=== PATIENT | female | born 1955 | race Caucasian/White ===

== ENCOUNTER 2016-12-26 01:08 | Inpatient (IN) | payer MEDICARE, MEDICAID ==
[~2016-12-26] VITALS: Ht 165.1 cm; Wt 82.0 kg
[2016-12-26 01:40] LABS: HEMATOCRIT 42.5 % (34.6-47.8); HEMOGLOBIN 14.3 g/dL (11.7-16.4); WHITE BLOOD COUNT 8.8 x10^3/uL (3.4-10)
[2016-12-26 01:50] LABS: BLOOD UREA NITROGEN 16 mg/dL (7-18)
[2016-12-26 01:55] LABS: IS PT STATUS REG ER OR PRE ER? YES
[2016-12-26] MEDS ORDERED: SODIUM CHLORIDE 0.9% 1,000 ML IV ONE (02:20)
[2016-12-26] MEDS ORDERED: ONDANSETRON 2MG/ML, 2ML IVPush PRN ×2 (02:30→05:30)
[2016-12-26] MEDS ORDERED: ONDANSETRON 2MG/ML, 2ML ONE (02:42)
[2016-12-26 03:19] VITALS: BP 142/74
[2016-12-26] MEDS ORDERED: SODIUM CHLORIDE 0.9% 1,000 ML IV SCH (05:28)
[2016-12-26] MEDS ORDERED: ACETAMINOPHEN 325 MG TABLET PO PRN (05:30)
[2016-12-26] MEDS ORDERED: morphine SULFATE 10 MG/ML, 1ML IVPush PRN (05:30)
[2016-12-26] MEDS ORDERED: POLYETHYLENE GLYCOL 17 GM PACKET PO PRN (05:30)
[2016-12-26] MEDS ORDERED: DOCUSATE 100 MG CAPSULE PO PRN (05:30)
[2016-12-26] MEDS ORDERED: METHOCARBAMOL 500 MG TABLET PO PRN (06:00)
[2016-12-26 06:49] VITALS: BP 128/78
[2016-12-26] MEDS ORDERED: DIAZ5TAB PO (16:22)
== END 2016-12-26 07:58 | disposition left against medical advice (07) | DRG 313 ==
LOC: ED 01:44 → EDIP 02:20 → 5SO 03:13
PROVIDERS: ADMIT Family Medicine; ATTEND Family Medicine
DX: R07.9 Chest pain, unspecified (principal); R56.9 Unspecified convulsions; R00.1 Bradycardia, unspecified; F12.90 Cannabis use, unspecified, uncomplicated; Z88.6 Allergy status to analgesic agent; Z88.8 Allergy status to other drugs, medicaments and biological substances; Z72.0 Tobacco use
CPT/HCPCS: 36415; 80048; 82040; 84484; 85025; 93005; 99285; J2270; J7030

== ENCOUNTER 2016-12-26 14:56 | Inpatient (IN) | payer MEDICARE, MEDICAID ==
[~2016-12-26] VITALS: Ht 162.6 cm; Wt 79.5 kg
[2016-12-26] MEDS ORDERED: SODIUM CHLORIDE FLUSH 10ML SYR IVF ONE (15:30)
[2016-12-26 15:47] LABS: HEMATOCRIT 42.7 % (34.6-47.8); HEMOGLOBIN 14.8 g/dL (11.7-16.4); WHITE BLOOD COUNT 7.6 x10^3/uL (3.4-10)
[2016-12-26 15:56] LABS: IS PT STATUS REG ER OR PRE ER? YES
[2016-12-26] MEDS ORDERED: DIAZ5TAB PO (16:22)
[2016-12-26] MEDS ORDERED: ACETAMINOPHEN 325 MG TABLET PO PRN (16:30)
[2016-12-26] MEDS ORDERED: ONDANSETRON ODT 4 MG PO PRN (16:30)
[2016-12-26] MEDS ORDERED: DOCUSATE 100 MG CAPSULE PO PRN (16:30)
[2016-12-26] MEDS ORDERED: ONDANSETRON 2MG/ML, 2ML IVPush PRN (16:30)
[2016-12-26] MEDS ORDERED: KETOROLAC 30 MG/1 ML IVPush ONE (17:00)
[2016-12-26] MEDS ORDERED: METHOCARBAMOL 750 MG TABLET PO PRN (17:00)
[2016-12-26 18:11] LABS: DAU SCREEN DISCLAIMER
[2016-12-26 19:19] VITALS: BP 171/88
[2016-12-26 19:45] VITALS: BP 142/90
[2016-12-26] MEDS: SODIUM CHLORIDE 0.9% 1,000 ML IV SCH (20:12)
[2016-12-26] MEDS: NICOTINE 14MG/24 HR PATCH.TD24 TD SCH (20:12)
[2016-12-27 03:58] VITALS: BP 123/78
[2016-12-27 04:50] VITALS: BP 123/78
[2016-12-27] MEDS: SODIUM CHLORIDE 0.9% 1,000 ML IV SCH (04:54)
[2016-12-27 08:20] VITALS: BP 164/91
[2016-12-27] MEDS ORDERED: CEFAZOLIN PMX 1GM/50ML 50 ML ONE (13:34)
[2016-12-27] MEDS ORDERED: LIDOCAINE 2%, 20ML ONE (13:34)
[2016-12-27] MEDS ORDERED: CEFAZOLIN 1,000 MG ONE (13:34)
[2016-12-27] MEDS ORDERED: MIDAZOLAM 1 MG/ML, 5ML ONE (13:34)
[2016-12-27] MEDS ORDERED: FENTANYL PF 100 MCG/2ML ONE (13:34)
[2016-12-27] MEDS ORDERED: DIPHENHYDRAMINE 50 MG/ML, 1ML ONE (14:04)
[2016-12-27 15:26] VITALS: BP 122/87
[2016-12-27 20:35] VITALS: BP 104/74
[2016-12-27] MEDS: NICOTINE 14MG/24 HR PATCH.TD24 TD SCH (21:20)
[2016-12-27] MEDS: SODIUM CHLORIDE FLUSH 10ML SYR IVF SCH (21:20)
[2016-12-27] MEDS: CEFAZOLIN PMX 1GM/50ML 50 ML IVPB SCH (22:23)
[2016-12-28] MEDS: HYDROcodone/APAP 5/325 TABLET PO PRN ×2 (00:58→06:11)
[2016-12-28 01:00] VITALS: BP 119/80
[2016-12-28] MEDS: CEFAZOLIN PMX 1GM/50ML 50 ML IVPB SCH ×2 (06:11→12:42)
[2016-12-28 07:44] VITALS: BP 128/86
[2016-12-28] MEDS: SODIUM CHLORIDE FLUSH 10ML SYR IVF SCH (08:52)
[2016-12-28] MEDS ORDERED: NICO1PAT13 TD (12:20)
[2016-12-28] MEDS ORDERED: METH750T2 PO (12:20)
== END 2016-12-28 16:24 | disposition home or self-care (01) | DRG 244 ==
LOC: ED 16:29 → EDIP 16:30 → ED 16:32 → 5SO 18:52 → DCLOUNGE 12-28 14:41
PROVIDERS: ADMIT Hospitalist; ATTEND Hospitalist
PROC: 0JH606Z Insertion of Pacemaker, Dual Chamber into Chest Subcutaneous Tissue and Fascia, Open Approach (ICD-10-PCS; principal; 2016-12-27)
PROC: 02H63JZ Insertion of Pacemaker Lead into Right Atrium, Percutaneous Approach (ICD-10-PCS; 2016-12-27)
PROC: 02HK3JZ Insertion of Pacemaker Lead into Right Ventricle, Percutaneous Approach (ICD-10-PCS; 2016-12-27)
DX: R00.1 Bradycardia, unspecified (principal); E03.9 Hypothyroidism, unspecified; F12.90 Cannabis use, unspecified, uncomplicated; F17.210 Nicotine dependence, cigarettes, uncomplicated; M62.838 Other muscle spasm; Z91.81 History of falling; Z71.6 Tobacco abuse counseling; Z88.6 Allergy status to analgesic agent; Z88.8 Allergy status to other drugs, medicaments and biological substances; Z91.048 Other nonmedicinal substance allergy status
CPT/HCPCS: 33208; 36415; 71010; 80307; 81003; 83880; 84443; 84484; 85025; 85610; 93005; 93306; 99156; 99157; 99285; C1779; C1785; C1892; J0690; J2250; J3010; J3490; J1200; J7030

== ENCOUNTER 2020-12-07 16:33 | Observation (INO) | payer MEDICARE, MEDICAID ==
[~2020-12-07] VITALS: Ht 162.6 cm; Wt 78.0 kg
[~2020-12-07 16:33] MED LIST: DIAZ5TAB PO; METH-640 PO; NICO-486 TD
[2020-12-07] MEDS ORDERED: ASPIRIN 81 MG TABLET CHEW PO ONE (17:00)
--- NOTE | 2020-12-07 17:00 | NUR ---
PT TO ROOM 29 W/ C/O CHEST PAIN/SOB/VOMITING AND LEFT ARM PAIN. PT STATES IT HAPPENED ON 2 SEPARATE OCCASIONS. PT RESTING ON GURNEY. NADN. MONITORS APPLIED. VSS. WARM BLANKET PROVIDED. CALL LIGHT IN REACH. KIM CRUZ AT BEDSIDE FOR EVAL.
[2020-12-07] MEDS ORDERED: ASPIRIN 81 MG TABLET CHEW ONE (17:09)
--- NOTE | 2020-12-07 18:02 | NUR ---
PT RESTING ON GURNEY. NADN. VICTOR.
[2020-12-07 18:15] LABS: BASOPHILS % (AUTO) 1 % (0-1); EOSINOPHILS % (AUTO) 1 % (1-7); LYMPHOCYTES % (AUTO) 27 % (22-44); MEAN CORPUSCULAR HEMOGLOBIN 32.7 pg (27.0-34.8); MEAN CORPUSCULAR HGB CONC 35.1 g/dL (32.4-35.8); MEAN PLATELET VOLUME 8.9 fL (7.4-10.4); MONOCYTES % (AUTO) 8 % (2-9); NEUTROPHILS % (AUTO) 63 % (42-75); PLATELET COUNT 224 x10^3/uL (130-400); RED BLOOD COUNT 4.62 x10^6/uL (3.82-5.3); RED CELL DISTRIBUTION WIDTH 12.3 % (9.6-15.2)
[2020-12-07 18:23] LABS: ALANINE AMINOTRANSFERASE 32 U/L (12-78); ALBUMIN 3.7 g/dL (3.4-5.0); ANION GAP 7 mmol/L (5-15); CALCIUM 9.7 mg/dL (8.5-10.1); CHLORIDE 106 mmol/L (98-107)
[2020-12-07 18:28] LABS: ALKALINE PHOSPHATASE 66 U/L (45-117); BILIRUBIN,TOTAL 0.7 mg/dL (0.2-1.0); CREATININE 0.68 mg/dL (0.55-1.02); TOTAL PROTEIN 7.7 g/dL (6.4-8.2); TROPONIN I < 0.015 ng/mL (0.000-0.045)
--- NOTE | 2020-12-07 19:53 | NUR ---
PT RESTING ON GURNEY. NADN. VICTOR.
[2020-12-07] MEDS ORDERED: BISACODYL 10 MG SUPP PR PRN (21:00)
[2020-12-07] MEDS ORDERED: NICOTINE 14MG/24 HR PATCH.TD24 TD ONE (21:00)
[2020-12-07] MEDS ORDERED: MELATONIN 5 MG TABLET PO PRN (21:00)
[2020-12-07] MEDS ORDERED: ACETAMINOPHEN 325 MG TABLET PO PRN (21:00)
[2020-12-07] MEDS ORDERED: ONDANSETRON 2MG/ML, 2ML IVPush PRN (21:00)
--- NOTE | 2020-12-07 21:08 | NUR ---
PT RESTING ON GURNEY. NADN. VICTOR.
--- NOTE | 2020-12-07 21:10 | NUR ---
REPORT GIVEN TO ROSMERY SOMERS RN. ALL QUESTIONS ANSWERED. AWAITING PT TRANSPORT.
[2020-12-07 21:45] VITALS: BP 151/93
[2020-12-07] MEDS: HEPARIN 5,000 UNITS/ML, 1ML SQ SCH (22:46)
[2020-12-07 23:35] LABS: TROPONIN I < 0.015 ng/mL (0.000-0.045)
[2020-12-08 01:07] VITALS: BP 131/62
[2020-12-08 01:33] LABS: AMPHETAMINE SCREEN, URINE Negative (Negative); BARBITURATE SCREEN, URINE Negative (Negative); BENZODIAZEPINE SCREEN, URINE Negative (Negative); CANNABINOID SCREEN, URINE Positive (Negative); COCAINE SCREEN, URINE Negative (Negative); METHADONE SCREEN, URINE Negative (Negative); OPIATE SCREEN, URINE Negative (Negative)
[2020-12-08 05:00] LABS: BASOPHILS % (AUTO) 1 % (0-1); EOSINOPHILS % (AUTO) 3 % (1-7); LYMPHOCYTES % (AUTO) 40 % (22-44); MEAN CORPUSCULAR HEMOGLOBIN 32.3 pg (27.0-34.8); MEAN CORPUSCULAR HGB CONC 34.7 g/dL (32.4-35.8); MEAN PLATELET VOLUME 8.2 fL (7.4-10.4); MONOCYTES % (AUTO) 9 % (2-9); NEUTROPHILS % (AUTO) 47 % (42-75); PLATELET COUNT 204 x10^3/uL (130-400); RED BLOOD COUNT 4.43 x10^6/uL (3.82-5.3); RED CELL DISTRIBUTION WIDTH 12.3 % (9.6-15.2)
[2020-12-08 05:10] LABS: CHLORIDE 108 mmol/L (98-107)
[2020-12-08 05:27] LABS: ANION GAP 3 mmol/L (5-15); CHOL/HDL RATIO 3.9; CHOLESTEROL, TOTAL 178 mg/dL (140-239); CREATININE 0.64 mg/dL (0.55-1.02); HDL CHOL % 26 % (28-40); HDL CHOLESTEROL (DIRECT) 46 mg/dL (40-60); LDL CHOLESTEROL,CALCULATED 117 mg/dL (54-169); LDL/HDL RATIO 2.5 (0.5-3.0); TRIGLYCERIDES 76 mg/dL (50-200); TROPONIN I < 0.015 ng/mL (0.000-0.045); VLDL CHOLESTEROL 15 mg/dL (0-25)
[2020-12-08 05:43] LABS: FREE T4 (FREE THYROXINE) 1.16 ng/dL (0.76-1.46)
[2020-12-08] MEDS: HEPARIN 5,000 UNITS/ML, 1ML SQ SCH ×2 (07:07→15:50)
[2020-12-08 07:44] VITALS: BP 155/81
[2020-12-08 13:02] VITALS: BP 130/74
[2020-12-08] MEDS ORDERED: OMNIPAQUE 350 MG/ML, 100ML BOTTLE ONE (15:24)
[2020-12-08 20:12] VITALS: BP 134/89
[2020-12-08] MEDS ORDERED: NICOTINE 21 MG/24 HR PATCH.TD24 TD SCH (22:00)
[2020-12-09 00:14] VITALS: BP 139/88
[2020-12-09] MEDS: HEPARIN 5,000 UNITS/ML, 1ML SQ SCH ×3 (00:19→16:00)
[2020-12-09 06:55] VITALS: BP 155/97
[2020-12-09] MEDS ORDERED: REGADENOSON 0.4 MG/5 ML SYRINGE ONE (08:32)
[2020-12-09 12:11] VITALS: BP 149/89
== END 2020-12-09 16:00 | disposition home or self-care (01) ==
LOC: ED 21:30 → INTOOBSV 21:38 → EDIP 21:38 → 5SO 21:43
PROVIDERS: ADMIT Internal Medicine; ATTEND Internal Medicine
DX: R07.89 Other chest pain (principal); Z20.822 Contact with and (suspected) exposure to COVID-19; I48.0 Paroxysmal atrial fibrillation; R06.02 Shortness of breath; R05 Cough; I47.1 Supraventricular tachycardia; I44.7 Left bundle-branch block, unspecified; F17.210 Nicotine dependence, cigarettes, uncomplicated; F12.90 Cannabis use, unspecified, uncomplicated; Z79.899 Other long term (current) drug therapy; Z95.0 Presence of cardiac pacemaker; Z86.59 Personal history of other mental and behavioral disorders
CPT/HCPCS: 36415; 71045; 71275; 78452; 80048; 80053; 80061; 80307; 83735; 84100; 84439; 84443; 84484; 85025; 85379; 93005; 93017; 93306; 96372; 99285; A9502; G0378; J1644; J2785; Q9967; U0003; U0005